=== PATIENT | male | born 1940 | race African-American/Black ===

== ENCOUNTER 2017-07-18 05:54 | Inpatient (IN) ==
--- NOTE | 2017-07-18 06:59 | EKG Report ---
Stationary ECG Study [facility] Test Date: 07/18/2017 6:56:54 AM Pat Name: CATRACHITO WILLOUGHBY Department: Room: 607 Gender: M [employer] Hel[employer]: MONICA : 1940 Requested by: Ozzy Whiet Order Number: [id number] Reading MD: PIERRE MTZ Intervals [place] Rate: 76 P: 61 AK: 190 QRS: 5 QRSD: 82 T: 38 QT: 346 QTc: 376 Interpretive Statements SINUS RHYTHM Electronically Signed On 07-18-17 10:51:32 CDT by PIERRE MTZ [email or web address]
[2017-07-18] MEDS ORDERED: LEVOFLOXACIN INJ 0 ML IV ONE (07:23)
[2017-07-18] MEDS ORDERED: LEVOFLOXACIN INJ 500 MG in PREMIX 1 EACH IV ONE (07:25)
--- NOTE | 2017-07-18 07:26 | XRay Report ---
2 view chest. Indication: Respiratory preoperative. The heart is normal in size. The pulmonary vasculature is normal. There is no consolidation, pneumothorax, or pleural effusion. At the right lung base, centrally, there is questionably a small nodular density, which may be related to nipple shadow or confluence of shadows. There has been previous vertebroplasty. Impression: Pulmonary nodule versus nipple shadow versus confluence of shadows at the right lung base. CT of the chest is recommended for further evaluation. PROCEDURE INTERPRETED AT [facility] DEPARTMENT OF RADIOLOGY Final Report Signed by: Dr. Marjorie Montano
[2017-07-18 07:40] LABS: Basophils % 0.3 % (0.0-0.8); Eosinophils # 0.1 10*3/uL (0.0-0.87); Eosinophils % 3.4 % (0.00-10.9); Hematocrit 25.8 VOL% (42.0-52.0); Hemoglobin 8.1 GM/DL (14.0-18.0); Immature Granulocytes % 3.7 %; Immature Granulocytes Absolute 0.13 #; Lymphocytes # 0.9 10*3/uL (1.4-4.0); Lymphocytes % 25.6 % (21.2-54.2); Mean Corpuscular HGB Conc 31.4 GM/DL (32-36); Mean Corpuscular Hemoglobin 27 PG (27-34); Mean Corpuscular Volume 84.9 FL (87-102); Mean Platelet Volume 9.6 FL (9.6-12.0); Monocytes # 0.5 10*3/uL (0.11-0.8); Monocytes % 14.5 % (1.7-12.7); Neutrophils # 1.8 10*3/uL (1.4-7.4); Neutrophils % 52.5 % (38.7-73.9); Platelet Count 252 T/CUMM (130-400); Red Blood Count 3.04 MC/CUMM (3.8-5.5); Red Cell Distribution Width 18.7 % (9.3-17.3); White Blood Count 3.5 T/CUMM (4-12)
[2017-07-18 07:42] LABS: Apearance,Urine CLEAR (Clear); Bilirubin,Urine Negative (Negative); Blood, Urine Negative (Negative); Glucose,Urine (UA) >=500 mg/dL (Negative); Ketones,Urine Negative (Negative); Nitrite,Urine Negative (Negative); Protein,Urine 30 MG/DL; RBC,Urine <1 /HPF (0-4); Squamous Epithelial Cell,Urine Occasional /HPF (0-10); Urine Color Straw (Yellow); Urine Specific Gravity 1.013 (1.001-1.035); Urine Urobilinogen < 2.0 EU/DL (0.2-1.0); WBC,Urine <1 /HPF (0-6)
[2017-07-18 08:02] LABS: PT Patient Result 10.3 SECS
[2017-07-18] MEDS: SODIUM CHLORIDE 0.45% 1,000 ML IV SCH ×2 (08:52→22:02)
[2017-07-18 09:05] LABS: Hepatitis A Ab IgM Quant 0.12 Index; Hepatitis A Ab IgM Result Negative (Negative); Hepatitis B Core IgM Quant 0.06 Index; Hepatitis B Core IgM Result Negative (Negative); Hepatitis B Surface Ag Result Negative (Negative); Hepatitis C Virus Ab Quant 0.02 Index; Hepatitis C Virus Ab Result Negative (Negative)
--- NOTE | 2017-07-18 09:13 | IR History and Physical Update ---
IR Pre-Procedure - History and Physical H&P was reviewed, the patient examined and there: are no changes in the patients condition since last H&P was completed. Reason for procedure:: CKD, never had biopsy before - Dictation Physical: refer to scanned H&P - Physical Exam Vital Signs: Last Vital Signs Temp 97.8 F 07/18/17 06:42 Pulse 75 07/18/17 06:42 Resp 20 07/18/17 06:42 BP 154/81 07/18/17 06:42 Pulse Ox 96 07/18/17 06:42 Mental Status: alert and oriented Heart: regular rate and rhythm Lung: clear to auscultation Abdomen: within normal limits - Sedation IR anesthesia plan for sedation: none ASA Class: III Airway Assessment: Class III: Soft palate, base of uvula visible - Risks Risks: Procedures explained. Risks discussed include, but not limited to, the following:[ ] All questions answered. The following alternatives were discussed:[ ] Risks and benefits discussed with: patient, spouse Consent obtained from: patient, spouse Assessment and Plan - Time spent with patient Time spent with patient: Less than 30 minutes (1) Chronic kidney disease (CKD) Problem details: need biopsy for staging Status: Acute Assessment and plan: this morning found to have hyperglycemia and anemia Dr. White will admit to address these issues prior to biopsy Current Visit: Yes
[2017-07-18] MEDS ORDERED: GLUCAGON 1 MG VIAL IM PRN (10:36)
[2017-07-18] MEDS ORDERED: DEXTROSE 50% 25 GM/50 ML SYRINGE IV PRN (10:36)
[2017-07-18] MEDS ORDERED: ACETAMINOPHEN 325 MG TABLET PO PRN (10:36)
[2017-07-18] MEDS ORDERED: SODIUM CHLORIDE 0.9% 250 ML IV PRN (12:37)
--- NOTE | 2017-07-18 12:41 | Nephrology Consult Note ---
History of Present Illness Chief complaint: Proteinuria History of present illness: Mr. Pineda is a 77 year old male with a history of hypertension diabetes and proteinuria who over the last several months has had decrease in weight and failure to thrive. Patient was started on Megace last month however patient's weight continues to decline. Moreover on outpatient basis. Has had evidence of proteinuria and is being admitted at this time for kidney biopsy. No fevers or chills. No shortness of breath or chest pain. There is been no change in medications. No history of NSAID medication. Home Medications Medication Instructions Recorded Confirmed Type Insulin Aspart [Novolog] 5 unit SQ BID 07/18/17 07/18/17 History Insulin Glargine,Hum.rec.anlog 20 unit SUBCUT BEDTIME 07/18/17 07/18/17 History [Lantus SoloStar] Megestrol Liquid [Megace Liquid] 10 ml PO BID 07/18/17 07/18/17 History RX: Enalapril Maleate 10 mg PO BID 07/18/17 07/18/17 History RX: Simvastatin 10 mg PO DAILY 07/18/17 07/18/17 History RX: hydroCHLOROthiazide 25 mg PO DAILY 07/18/17 07/18/17 History [Hydrochlorothiazide] amLODIPine [Norvasc] 2.5 mg PO DAILY 07/18/17 07/18/17 History Allergies Allergy/AdvReac Type Severity Reaction Status Date / Time No Known Allergies Allergy Verified 06/05/17 08:33 Medical,Surgical,& Family Hx - Medical History Cardio: History of: Hypertension Neurology: No history of: Seizures HEENT: No history of: Ear Problem, Eye Problem, Dental Problems Endocrine: History of: Diabetes Mellitus (IDDM), Diabetes Mellitus (NIDDM), Dyslipidemia Respiratory: No history of: Pneumonia (NO PNEUM VAC), Respiratory Problems (FLU VAC FALL 2015) Renal: History of: Renal Problems (07/18/17 SCHED FOR KIDNEY BX RAD DR. VIERA- CKD STAGE 2) Other: No history of: Anesthesia Reactions, Cancer - Surgical History Thoracic Surgeries: Patient denies;: Lobectomy HEENT Surgeries: Patient denies: Eye Surgery, Tonsilectomy & Adenoidectomy - Social History Smoking Status: Never smoker Frequency of Alcohol Use: None Type of Drug Use: None Exam - Vital Signs Vital signs: Period Temp Pulse Resp BP Sys/Mejia Pulse Ox Last 24 Hr 97.8 F 75 20 154/81 96 - General Appearance General appearance: well-developed, fatigue, frail EENT: ATNC Neck: supple Respiratory: clear Cardiology: regular rate, regular rhythm Gastrointestinal: normoactive bowel sounds, no tenderness Neurologic: alert and oriented x3, CN 3-12 intact Psychiatric: mood/affect appropriate, cooperative Results - Labs CBC & BMP: 07/18/17 07:21 07/18/17 07:16 Assessment and Plan (1) Diabetes Status: Chronic Current Visit: Yes Qualifiers: Diabetes mellitus type: type 2 Chronic kidney disease stage: stage 2 (mild ) (2) Proteinuria Status: Chronic Current Visit: Yes Qualifiers: Proteinuria type: persistent Qualified Code(s): R80.1 - Persistent proteinuria, unspecified (3) Failure to thrive Status: Acute Assessment and plan: With weight loss. Currently on Megace therapy. Current Visit: Yes Qualifiers: Failure to thrive age range: in adult Qualified Code(s): R62.7 - Adult failure to thrive (4) Weight loss Status: Acute Current Visit: Yes (5) Chronic kidney disease (CKD) Problem details: need biopsy for staging Status: Chronic Assessment and plan: Evidence of proteinuria in this patient with diabetes. Will get a kidney biopsy. Current Visit: Yes Qualifiers: Chronic kidney disease stage: stage 2 (mild) Qualified Code(s): N18.2 - Chronic kidney disease, stage 2 (mild) (6) Anemia Status: Acute Assessment and plan: Type and transfuse 2 units packed red blood cells. Current Visit: Yes
[2017-07-18 12:44] LABS: Alanine Aminotransferase 25 U/L (16-61); Alkaline Phosphatase 143 U/L (45-117); Aspartate Amino Transferase 17 U/L (0-37); Bilirubin,Total < 0.39 MG/DL (0.2-1.0); Blood Urea Nitrogen 29 MG/DL (7-18); Glucose 287 MG/DL (74-106); Osmolality,Calculated 292.5 MOS/KG (273-304); Potassium 4.7 MMOL/L (3.5-5.1); Sodium 139 MMOL/L (136-145); Total Protein 5.9 G/DL (6.4-8.3)
[2017-07-18 13:31] LABS: Basophils % 0.3 % (0.0-0.8); Eosinophils # 0.1 10*3/uL (0.0-0.87); Eosinophils % 2.9 % (0.00-10.9); Hematocrit 28.2 VOL% (42.0-52.0); Hemoglobin 8.5 GM/DL (14.0-18.0); Immature Granulocytes % 3.2 %; Immature Granulocytes Absolute 0.11 #; Lymphocytes # 0.9 10*3/uL (1.4-4.0); Lymphocytes % 27.6 % (21.2-54.2); Mean Corpuscular HGB Conc 30.1 GM/DL (32-36); Mean Corpuscular Hemoglobin 26 PG (27-34); Mean Corpuscular Volume 87.6 FL (87-102); Mean Platelet Volume 9.7 FL (9.6-12.0); Monocytes # 0.5 10*3/uL (0.11-0.8); Monocytes % 13.8 % (1.7-12.7); Neutrophils # 1.8 10*3/uL (1.4-7.4); Neutrophils % 52.2 % (38.7-73.9); Platelet Count 197 T/CUMM (130-400); Red Blood Count 3.22 MC/CUMM (3.8-5.5); Red Cell Distribution Width 18.9 % (9.3-17.3); White Blood Count 3.4 T/CUMM (4-12)
[2017-07-18] MEDS: ENALAPRIL 10 MG TABLET PO SCH (21:22)
[2017-07-18] MEDS: MEGESTROL 400 MG/10 ML UDCUP PO SCH (21:22)
[2017-07-18] MEDS: INSULIN LISPRO 100 UNIT/ML SUBCUT SCH (21:23)
[2017-07-19 07:26] LABS: Basophils % 0.5 % (0.0-0.8); Eosinophils # 0.1 10*3/uL (0.0-0.87); Eosinophils % 2.5 % (0.00-10.9); Hematocrit 34.8 VOL% (42.0-52.0); Immature Granulocytes % 3.5 %; Immature Granulocytes Absolute 0.14 #; Lymphocytes # 1.3 10*3/uL (1.4-4.0); Lymphocytes % 32.3 % (21.2-54.2); Mean Corpuscular HGB Conc 32.5 GM/DL (32-36); Mean Corpuscular Hemoglobin 27 PG (27-34); Mean Corpuscular Volume 83.5 FL (87-102); Mean Platelet Volume 9.8 FL (9.6-12.0); Monocytes # 0.5 10*3/uL (0.11-0.8); Monocytes % 12.2 % (1.7-12.7); Platelet Count 222 T/CUMM (130-400); Red Cell Distribution Width 17.2 % (9.3-17.3)
[2017-07-19 07:39] LABS: Hemoglobin 11.3 GM/DL (14.0-18.0); Red Blood Count 4.17 MC/CUMM (3.8-5.5)
[2017-07-19 07:59] LABS: Calcium 9.2 MG/DL (8.5-10.1); Osmolality,Calculated 288.7 MOS/KG (273-304); Phosphorous 3.2 MG/DL (2.5-4.9); Potassium 4.4 MMOL/L (3.5-5.1)
[2017-07-19] MEDS: INSULIN LISPRO 100 UNIT/ML SUBCUT SCH ×2 (08:20→20:49)
[2017-07-19] MEDS: amLODIPine 2.5 MG TABLET PO SCH (08:20)
--- NOTE | 2017-07-19 08:51 | Nephrology Progress Note ---
Nephrology - PN: Subj Interval history: This patient is resting comfortably no acute changes. Tolerated 2 units packed red blood cells on yesterday hematocrit is been stable. No fevers or chills. No shortness of breath. Family members at the bedside states that there was question about patient having such a strong halitosis. No history of nausea or vomiting and no history of EGD. Exam (PN)-Nephrology - Vital Signs Vital signs: Period Temp Pulse Resp BP Sys/Mejia Pulse Ox Last 24 Hr 97.7 F-99.1 F 66-89 16-20 127-189/68-92 97-99 - General Appearance General appearance: well-developed, fatigue EENT: ATNC Neck: supple Respiratory: clear Cardiology: regular rate, regular rhythm Gastrointestinal: normoactive bowel sounds, no tenderness Neurologic: CN 3-12 intact Musculoskeletal: no clubbing Psychiatric: mood/affect appropriate - Lab 07/19/17 07:10 07/19/17 07:10 Most recent lab results Calcium 9.2 MG/DL (8.5-10.1) 07/19/17 07:10 Phosphorus 3.2 MG/DL (2.5-4.9) 07/19/17 07:10 Assessment and Plan (1) Diabetes Status: Chronic Current Visit: Yes Qualifiers: Diabetes mellitus type: type 2 Chronic kidney disease stage: stage 2 (mild ) (2) Proteinuria Status: Chronic Current Visit: Yes Qualifiers: Proteinuria type: persistent Qualified Code(s): R80.1 - Persistent proteinuria, unspecified (3) Failure to thrive Status: Acute Assessment and plan: With weight loss. Currently on Megace therapy. Appetite seems to be better. Current Visit: Yes Qualifiers: Failure to thrive age range: in adult Qualified Code(s): R62.7 - Adult failure to thrive (4) Weight loss Status: Acute Current Visit: Yes (5) Chronic kidney disease (CKD) Problem details: need biopsy for staging Status: Chronic Assessment and plan: Evidence of proteinuria in this patient with diabetes. Will get a kidney biopsy. Plan for biopsy today. Current Visit: Yes Qualifiers: Chronic kidney disease stage: stage 2 (mild) Qualified Code(s): N18.2 - Chronic kidney disease, stage 2 (mild) (6) Anemia Status: Acute Assessment and plan: Type and transfuse 2 units packed red blood cells. Now status post 2 units packed red blood cells. Hematocrit is stable. CBC in a.m. Will ask for GI consult for EGD Current Visit: Yes (7) Halitosis Status: Acute Current Visit: Yes
[2017-07-19] MEDS ORDERED: LEVOFLOXACIN INJ 500 MG in PREMIX 1 EACH IV ONE (09:38)
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
[2017-07-19] MEDS: SODIUM CHLORIDE 0.45% 1,000 ML IV SCH (11:11)
--- NOTE | 2017-07-19 12:02 | IR History and Physical Update ---
IR Pre-Procedure - History and Physical H&P was reviewed, the patient examined and there: are no changes in the patients condition since last H&P was completed. Reason for procedure:: chronic renal failure - Dictation Physical: refer to H&P completed by admitting physician - Physical Exam Vital Signs: Last Vital Signs Temp 97.3 F L 07/19/17 11:59 Pulse 73 07/19/17 11:59 Resp 18 07/19/17 11:59 BP 150/86 07/19/17 11:59 Pulse Ox 100 07/19/17 11:59 Mental Status: alert and oriented Heart: regular rate and rhythm Lung: clear to auscultation Abdomen: within normal limits - Sedation IR anesthesia plan for sedation: none ASA Class: III Airway Assessment: Class III: Soft palate, base of uvula visible - Risks Risks: Procedures explained. Risks discussed include, but not limited to, the following:[ bleeding, infection, injury to adjacent structures] All questions answered. The following alternatives were discussed:[none ] Risks and benefits discussed with: patient Consent obtained from: patient Assessment and Plan - Time spent with patient Time spent with patient: Less than 30 minutes (1) Chronic kidney disease (CKD) Problem details: need biopsy for staging Status: Chronic Assessment and plan: this morning found to have hyperglycemia and anemia Dr. White will admit to address these issues prior to biopsy Current Visit: Yes Qualifiers: Chronic kidney disease stage: stage 2 (mild) Qualified Code(s): N18.2 - Chronic kidney disease, stage 2 (mild)
[2017-07-19] MEDS ORDERED: DIAZEPAM 5 MG TABLET PO ONE (13:14)
[2017-07-19] MEDS: ENALAPRIL 10 MG TABLET PO SCH ×2 (16:23→20:42)
[2017-07-19] MEDS: MEGESTROL 400 MG/10 ML UDCUP PO SCH ×2 (16:23→20:43)
--- NOTE | 2017-07-19 16:33 | Post Interventional Procedure ---
Pre-op diagnosis: chronic renal failure Post-op diagnosis: same Procedure: u/s renal biopsy Contrast: none Flouroscopy: none Radiologist: Clayton Molina Anesthesia: local Specimens: other (5 core samples sent for renal path analysis) Estimated blood loss: none Complications: none Condition: stable Description/Findings: lower pole of the left kidney was targeted for biopsy samples were obtained with no significant bleeding patient tolerated well Assessment and Plan - Time spent with patient Time spent with patient: Less than 30 minutes (1) Chronic kidney disease (CKD) Problem details: need biopsy for staging Status: Chronic Assessment and plan: this morning found to have hyperglycemia and anemia Dr. White will admit to address these issues prior to biopsy Current Visit: Yes Qualifiers: Chronic kidney disease stage: stage 2 (mild) Qualified Code(s): N18.2 - Chronic kidney disease, stage 2 (mild)
[2017-07-19] MEDS: hydroCHLOROthiazide 25 MG TABLET PO SCH (16:58)
[2017-07-19] MEDS: SIMVASTATIN 10 MG TABLET PO SCH (16:58)
--- NOTE | 2017-07-19 17:05 | Ultrasound Report ---
US biopsy renal LT Clinical Information: chronic renal failure Comparison: Prior renal ultrasound 03/08/2017 Total number of images for the procedure: 232 Findings: The lower pole the left kidney was targeted for biopsy. A total of 5 separate 20-gauge core samples were obtained and submitted for renal specific pathology. Following needle removal, scanning of the left flank and area of biopsy demonstrates no evidence of significant hemorrhage or other complication. Impression: Image guided random renal biopsy as detailed above. PROCEDURE INTERPRETED AT [facility] DEPARTMENT OF RADIOLOGY Final Report Signed by: Clayton Molina
[2017-07-19 20:37] LABS: % Iron Saturation 37.2 % (18-50); Ferritin 820.2 ng/ml (26-388)
[2017-07-20 05:53] LABS: Basophils % 0.7 % (0.0-0.8); Eosinophils # 0.1 10*3/uL (0.0-0.87); Eosinophils % 2.1 % (0.00-10.9); Hematocrit 36.5 VOL% (42.0-52.0); Hemoglobin 11.8 GM/DL (14.0-18.0); Immature Granulocytes % 2.1 %; Immature Granulocytes Absolute 0.09 #; Lymphocytes # 1.1 10*3/uL (1.4-4.0); Lymphocytes % 25.3 % (21.2-54.2); Mean Corpuscular HGB Conc 32.3 GM/DL (32-36); Mean Corpuscular Hemoglobin 27 PG (27-34); Mean Corpuscular Volume 83.7 FL (87-102); Monocytes # 0.5 10*3/uL (0.11-0.8); Neutrophils # 2.5 10*3/uL (1.4-7.4); Neutrophils % 57.8 % (38.7-73.9); Platelet Count 214 T/CUMM (130-400); Red Blood Count 4.36 MC/CUMM (3.8-5.5); Red Cell Distribution Width 17.5 % (9.3-17.3); White Blood Count 4.3 T/CUMM (4-12)
[2017-07-20] MEDS: INSULIN LISPRO 100 UNIT/ML SUBCUT SCH ×2 (08:32→21:17)
[2017-07-20] MEDS: amLODIPine 2.5 MG TABLET PO SCH (09:22)
[2017-07-20] MEDS: MEGESTROL 400 MG/10 ML UDCUP PO SCH ×2 (09:22→21:17)
[2017-07-20] MEDS: hydroCHLOROthiazide 25 MG TABLET PO SCH (09:22)
[2017-07-20] MEDS: SODIUM CHLORIDE 0.45% 1,000 ML IV SCH (09:22)
[2017-07-20] MEDS: SIMVASTATIN 10 MG TABLET PO SCH (09:23)
[2017-07-20] MEDS: ENALAPRIL 10 MG TABLET PO SCH ×2 (09:23→21:17)
[2017-07-20] MEDS ORDERED: LIDOCAINE 2% 5 ML VIAL ONE (13:01)
[2017-07-20] MEDS ORDERED: PROPOFOL 200 MG/20 ML VIAL IV ONE (13:01)
--- NOTE | 2017-07-20 13:08 | History and Physical Update ---
History and Physical Update - History and Physical H&P was reviewed, the patient examined and there: are no changes in the patients condition since last H&P was completed. - Physical Exam Mental Status: alert and oriented Heart: regular rate and rhythm Lung: clear to auscultation Abdomen: within normal limits Vitals: within normal limits
--- NOTE | 2017-07-20 13:11 | Operative Note ---
Date of procedure: 07/20/17 Pre-op diagnosis: Anemia, weight loss Procedure: Procedure: Esophagogastroduodenoscopy Brief clinical abstract: Patient is a 77-year-old male who has had recent 10 pound weight loss with decreased appetite. He was anemic on admission requiring transfusion. He denies gross GI bleeding, abdominal pain or difficulty swallowing. Indication for procedure: Anemia, weight loss Endoscopic findings:[After informed consent was obtained, the patient was placed in the left lateral decubitus position. The gastroscope was inserted in the upper esophagus under direct vision with no resistance encountered. Esophageal mucosa appeared normal with squamocolumnar junction sharply demarcated above a small hiatal hernia. The endoscope was advanced in the stomach which was carefully examined including retroflexed view of the cardia and fundus with no abnormality seen. The pyloric channel, duodenal bulb, second and third portion of the duodenum appeared normal. The endoscope was withdrawn and patient appeared to tolerate procedure well Impression: Small hiatal hernia-otherwise normal EGD Recommendations: Patient needs colonoscopy at some point with last exam 10 years ago. Could do tomorrow if he stays as inpatient overnight or schedule as outpatient. Anesthesia: MAC Surgeon / Physician: Boston Doherty Estimated blood loss: none Specimens: none sent Condition: stable Disposition: post procedure unit Results - Labs CBC & BMP: 07/20/17 05:07 07/19/17 07:10 Discharge Plan - Discharge Medications No Action amLODIPine [Norvasc] 2.5 mg PO DAILY Enalapril Maleate 10 mg PO BID Insulin Aspart [Novolog] 5 unit SQ BID Insulin Glargine,Hum.rec.anlog [Lantus SoloStar] 20 unit SUBCUT BEDTIME hydroCHLOROthiazide [Hydrochlorothiazide] 25 mg PO DAILY Simvastatin 10 mg PO DAILY Megestrol Liquid [Megace Liquid] 10 ml PO BID - Follow Up or Referral - Forms/Instructions
--- NOTE | 2017-07-20 13:23 | Anesthesia Post-Op ---
Anesthesia Post OP - Post Ansesthetic Evaluation Patient seen in post op: Yes Resp: within normal limits CV: within normal limits Mental: within normal limits Temp: within normal limits Pree-Cn-Zkadmkosu: within normal limits Nausea and Vomiting: within normal limits Pain: within normal limits
--- NOTE | 2017-07-20 17:41 | Nephrology Progress Note ---
Nephrology - PN: Subj Interval history: This patient is resting comfortably no acute changes. Tolerated 2 units packed red blood cells on yesterday hematocrit is been stable. No fevers or chills. No shortness of breath. Family members at the bedside states that there was question about patient having such a strong halitosis. No history of nausea or vomiting and no history of EGD. 07/20/2017. The patient is resting comfortably. Had an EGD done today that showed hernia. Hemodynamics have been stable. Hemoglobin is stable. Patient still has a pending kidney biopsy. Exam (PN)-Nephrology - Vital Signs Vital signs: Period Temp Pulse Resp BP Sys/Mejia Pulse Ox Last 24 Hr 97.6 F-98.7 F 74-97 16-24 109-144/61-83 96-100 - General Appearance General appearance: fatigue, frail EENT: ATNC Neck: supple Respiratory: clear Cardiology: regular rate, regular rhythm Gastrointestinal: normoactive bowel sounds, no tenderness Integumentary: no rash Neurologic: alert and oriented x3, CN 3-12 intact Musculoskeletal: no clubbing Psychiatric: mood/affect appropriate - Lab 07/20/17 05:07 07/19/17 07:10 Most recent lab results Calcium 9.2 MG/DL (8.5-10.1) 07/19/17 07:10 Phosphorus 3.2 MG/DL (2.5-4.9) 07/19/17 07:10 Assessment and Plan (1) Diabetes Status: Chronic Current Visit: Yes Qualifiers: Diabetes mellitus type: type 2 Chronic kidney disease stage: stage 2 (mild ) (2) Proteinuria Status: Chronic Current Visit: Yes Qualifiers: Proteinuria type: persistent Qualified Code(s): R80.1 - Persistent proteinuria, unspecified (3) Failure to thrive Status: Acute Assessment and plan: With weight loss. Currently on Megace therapy. Appetite seems to be better. Current Visit: Yes Qualifiers: Failure to thrive age range: in adult Qualified Code(s): R62.7 - Adult failure to thrive (4) Weight loss Status: Acute Current Visit: Yes (5) Chronic kidney disease (CKD) Problem details: need biopsy for staging Status: Chronic Assessment and plan: Evidence of proteinuria in this patient with diabetes. He is now status post a kidney biopsy. Those results are pending. Serologic workup showed evidence of M spike on his SPEP. Current Visit: Yes Qualifiers: Chronic kidney disease stage: stage 2 (mild) Qualified Code(s): N18.2 - Chronic kidney disease, stage 2 (mild) (6) Anemia Status: Acute Assessment and plan: Hematocrit is stable. Now status post an EGD which showed evidence of a hernia. No other acute changes. Current Visit: Yes (7) Halitosis Status: Acute Assessment and plan: Appreciate input from GI. Current Visit: Yes
[2017-07-20] MEDS ORDERED: POLYETHYLENE GLYCOL POWDER 255 GM BOTTLE PO ONE (18:00)
[2017-07-21] MEDS ORDERED: MAGNESIUM CITRATE 300 ML BOTTLE PO ONE (06:00)
[2017-07-21 06:08] LABS: Basophils % 0.4 % (0.0-0.8); Eosinophils # 0.1 10*3/uL (0.0-0.87); Eosinophils % 1.8 % (0.00-10.9); Hematocrit 39.8 VOL% (42.0-52.0); Hemoglobin 12.8 GM/DL (14.0-18.0); Immature Granulocytes Absolute 0.05 #; Lymphocytes # 1.4 10*3/uL (1.4-4.0); Lymphocytes % 27.7 % (21.2-54.2); Mean Corpuscular HGB Conc 32.2 GM/DL (32-36); Mean Corpuscular Hemoglobin 27 PG (27-34); Mean Corpuscular Volume 82.4 FL (87-102); Mean Platelet Volume 9.1 FL (9.6-12.0); Monocytes # 0.5 10*3/uL (0.11-0.8); Neutrophils % 60.1 % (38.7-73.9); Platelet Count 210 T/CUMM (130-400); Red Blood Count 4.83 MC/CUMM (3.8-5.5); Red Cell Distribution Width 17.3 % (9.3-17.3)
[2017-07-21 06:36] LABS: Calcium 9.1 MG/DL (8.5-10.1); Osmolality,Calculated 284.8 MOS/KG (273-304); Potassium 4.1 MMOL/L (3.5-5.1)
[2017-07-21] MEDS: INSULIN LISPRO 100 UNIT/ML SUBCUT SCH ×2 (09:10→20:01)
[2017-07-21] MEDS: amLODIPine 2.5 MG TABLET PO SCH ×2 (09:49→15:14)
[2017-07-21] MEDS: SIMVASTATIN 10 MG TABLET PO SCH (09:49)
[2017-07-21] MEDS: hydroCHLOROthiazide 25 MG TABLET PO SCH ×2 (09:49→15:14)
[2017-07-21] MEDS: ENALAPRIL 10 MG TABLET PO SCH ×3 (09:49→20:01)
[2017-07-21] MEDS: MEGESTROL 400 MG/10 ML UDCUP PO SCH ×2 (09:49→20:01)
[2017-07-21] MEDS: SODIUM CHLORIDE 0.45% 1,000 ML IV SCH (09:49)
--- NOTE | 2017-07-21 13:38 | Operative Note ---
Date of procedure: 07/21/17 Pre-op diagnosis: Screening, anemia Procedure: Procedure note: Colonoscopy Physician: Dr. Raphael Doherty Brief clinical abstract: 77-year-old male has had recent anemia with no localizing GI symptoms. He presents now for colon cancer screening. Endoscopic findings: After informed consent was obtained, the patient was placed in the left lateral decubitus position. Digital rectal exam was performed with no palpable abnormalities felt. Pediatric videocolonoscope was inserted into the rectum and advanced to the cecum without difficulty. Retroflex view within the cecum was performed back to the level of the hepatic flexure. The endoscope was advanced back to the cecum and on withdrawal colonic mucosa was carefully examined. Bowel prep was of excellent quality. Withdrawal time was over 6 minutes duration. Vascular pattern throughout the colon appeared normal. On withdrawal no polyps were seen. No diverticuli were noted. The endoscope was withdrawn in the rectum with retroflex view showing small internal hemorrhoids. The endoscope was removed and patient appeared to tolerate the procedure well. Impression: Internal hemorrhoids-otherwise normal colonoscopy Plan: Advance diet. Could discharge from GI standpoint. Anesthesia: MAC Surgeon / Physician: [place] Doherty Estimated blood loss: none Specimens: none sent Condition: stable Disposition: post procedure unit Results - Labs CBC & BMP: 07/21/17 05:50 07/21/17 05:50 Discharge Plan - Discharge Medications No Action amLODIPine [Norvasc] 2.5 mg PO DAILY Enalapril Maleate 10 mg PO BID Insulin Aspart [Novolog] 5 unit SQ BID Insulin Glargine,Hum.rec.anlog [Lantus SoloStar] 20 unit SUBCUT BEDTIME hydroCHLOROthiazide [Hydrochlorothiazide] 25 mg PO DAILY Simvastatin 10 mg PO DAILY Megestrol Liquid [Megace Liquid] 10 ml PO BID - Follow Up or Referral - Forms/Instructions
--- NOTE | 2017-07-21 13:44 | Anesthesia Post-Op ---
Anesthesia Post OP - Post Ansesthetic Evaluation Patient seen in post op: Yes Resp: within normal limits CV: within normal limits Mental: within normal limits Temp: within normal limits [id number]-[id number]: within normal limits Nausea and Vomiting: within normal limits Pain: within normal limits Other:: Bp 80/50 in recovery room given jake 100mcg,, bp 110/72
--- NOTE | 2017-07-21 19:26 | Nephrology Progress Note ---
Nephrology - PN: Subj Interval history: This patient is resting comfortably no acute changes. Tolerated 2 units packed red blood cells on yesterday hematocrit is been stable. No fevers or chills. No shortness of breath. Family members at the bedside states that there was question about patient having such a strong halitosis. No history of nausea or vomiting and no history of EGD. 07/20/2017. The patient is resting comfortably. Had an EGD done today that showed hernia. Hemodynamics have been stable. Hemoglobin is stable. Patient still has a pending kidney biopsy. 07/21/2017. The patient is resting comfortably. Had a C scope done today which showed evidence of hemorrhoids but no other acute pathology. Patient's renal function is stable. Anemia is stable. Appetite has improved. At this time waiting for confirmatory test for the can kidney biopsy. Exam (PN)-Nephrology - Vital Signs Vital signs: Period Temp Pulse Resp BP Sys/Mejia Pulse Ox Last 24 Hr 96.5 F-97.9 F 74-90 16-20 80-159/50-94 97-100 - General Appearance General appearance: well-developed, fatigue, frail EENT: ATNC Neck: supple Respiratory: clear Cardiology: regular rate, regular rhythm Gastrointestinal: normoactive bowel sounds, no tenderness, no guarding Neurologic: alert and oriented x3 Musculoskeletal: no clubbing Psychiatric: mood/affect appropriate - Lab 07/21/17 05:50 07/21/17 05:50 Most recent lab results Calcium 9.1 MG/DL (8.5-10.1) 07/21/17 05:50 Phosphorus 3.2 MG/DL (2.5-4.9) 07/19/17 07:10 Assessment and Plan (1) Diabetes Status: Chronic Current Visit: Yes Qualifiers: Diabetes mellitus type: type 2 Chronic kidney disease stage: stage 2 (mild ) (2) Proteinuria Status: Chronic Current Visit: Yes Qualifiers: Proteinuria type: persistent Qualified Code(s): R80.1 - Persistent proteinuria, unspecified (3) Failure to thrive Status: Acute Assessment and plan: With weight loss. Currently on Megace therapy. Appetite seems to be better. Current Visit: Yes Qualifiers: Failure to thrive age range: in adult Qualified Code(s): R62.7 - Adult failure to thrive (4) Weight loss Status: Acute Current Visit: Yes (5) Chronic kidney disease (CKD) Problem details: need biopsy for staging Status: Chronic Assessment and plan: Evidence of proteinuria in this patient with diabetes. He is now status post a kidney biopsy. Those results are pending. Serologic workup showed evidence of M spike on his SPEP. 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 Current Visit: Yes Qualifiers: Chronic kidney disease stage: stage 2 (mild) Qualified Code(s): N18.2 - Chronic kidney disease, stage 2 (mild) (6) Anemia Status: Acute Assessment and plan: Hematocrit is stable. Now status post an EGD which showed evidence of a hernia. Colonoscopy unremarkable. No other acute changes. Hematocrit has been stable. Current Visit: Yes (7) Halitosis Status: Acute Assessment and plan: Appreciate input from GI. Current Visit: Yes
[2017-07-22] MEDS: ENALAPRIL 10 MG TABLET PO SCH (08:01)
[2017-07-22] MEDS: SIMVASTATIN 10 MG TABLET PO SCH (08:01)
[2017-07-22] MEDS: INSULIN LISPRO 100 UNIT/ML SUBCUT SCH (08:01)
[2017-07-22] MEDS: hydroCHLOROthiazide 25 MG TABLET PO SCH (08:01)
[2017-07-22] MEDS: amLODIPine 2.5 MG TABLET PO SCH (08:01)
[2017-07-22] MEDS: SODIUM CHLORIDE 0.45% 1,000 ML IV SCH (08:01)
[2017-07-22] MEDS: MEGESTROL 400 MG/10 ML UDCUP PO SCH (08:02)
--- NOTE | 2017-07-22 08:38 | Gastrointestinal Progress Note ---
Assessment and Plan (1) Weight loss Status: Acute Assessment and plan: 07/22-C scope findings noted as below. Appetite is improving at this time. Plan an addendum to followed by Dr. Doherty. 07/19-10 pd weight loss over last 3 months with loss of appetite with minimal improvement with Megace. No prior EGD in the past. Plan and addendum to follow by Dr Doherty. Current Visit: Yes (2) Anemia Status: Acute Assessment and plan: 07/19-Two year history of anemia w/o transfusion or workup per family with findings of HH 07/22, now post transfusion w/o reports of overt bleeding. No GI symptoms reported other than 10 pd weight loss over last 6 months. Last endoscopy noted as below. Check stools for occult blood. Plan and addendum to follow by Dr Doherty. Current Visit: Yes Gastroenterology - PN: Subj Interval history: CC: Anemia Patient is seen awake and alert lying in bed with family at side. States he rested well overnight. Colonoscopy on yesterday noted to just have findings of internal hemorrhoids. Patient states he is eating a little better and feeling a little better at this time. Abdomen is soft, nontender. No repeat labs noted for today. Patient is for possible discharge home later today. ROS: Denies shortness of breath or chest pain Exam (Progress Note) - Constitutional Vitals: Period Temp Pulse Resp BP Sys/Mejia Pulse Ox Last 24 Hr 96.5 F-97.9 F 74-98 16-20 80-152/50-94 97-100 - Other Additional findings: General appearance: normal weight, no acute distress - Head Head exam: Present: normal inspection, normocephalic - Eye Eye exam: Present: other (lids and conjunctiva unremarkable). Absent: scleral icterus - ENT ENT exam: Present: normal exam, normal oropharynx - Neck Neck exam: Present: normal inspection - Respiratory Respiratory exam: Present: clear to auscultation bilaterally. Absent: rales, rhonchi, wheezes - Cardiovascular Cardiovascular exam: Present: regular rate and rhythm. Absent: diastolic murmur , JVD, systolic murmur - GI/Abdominal GI/Abdominal exam: Present: normal bowel sounds, soft. Absent: ascites, distended, mass, organomegaly, tenderness - Extremities Exam Extremities exam: Present: normal inspection, full ROM - Back Exam Back exam: Present: normal inspection - Neurological Exam Neurological exam: Present: alert, oriented X3 - Psychiatric Psychiatric exam: Present: normal affect, normal mood - Skin Skin exam: Present: normal color, warm, dry Results - Labs CBC & BMP: 07/21/17 05:50 07/21/17 05:50 Lab Results: I have reviewed the past 24 hour labs
[2017-07-22 08:58] VITALS: BP 121/74
--- NOTE | 2017-07-22 09:41 | Discharge Summary ---
Hospital Course - Hospital Course Hospital Course: This hospitalization included patient admitted for fatigue weakness anemia proteinuria. He underwent a kidney biopsy after he had 2 units packed red blood cells on admission. 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 He also had a EGD and colonoscopy done due to the halitosis in the anemia. The EGD showed a hiatal hernia no active bleeding and the colonoscopy was unremarkable. The patient remained hemodynamically stable. Serum creatinine remained stable. Appetite continue to show signs of improvement. At this time patient is reached maximal hospitalization. He will be discharged home. He will also follow with nephrology in the next 2 weeks and further referral with hematology regarding the findings of the kidney biopsy. 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 Discharge Plan - Discharge Data Disposition: Disch To Home/Self Care Condition at Discharge: Stable Discharge Diet: diabetic diet Activity: resume usual activities as tolerated Hygiene: no restrictions Contact your physician if you experience:: fever over 101 - Discharge Medications Continue amLODIPine [Norvasc] 2.5 mg PO DAILY Enalapril Maleate 10 mg PO BID Insulin Aspart [NovoLOG] 5 unit SQ BID Insulin Glargine,Hum.rec.anlog [Lantus SoloStar] 20 unit SUBCUT BEDTIME hydroCHLOROthiazide [Hydrochlorothiazide] 25 mg PO DAILY Simvastatin 10 mg PO DAILY Megestrol Liquid [Megace Liquid] 10 ml PO BID - Follow Up or Referral - Forms/Instructions Additional Discharge Instructions: Follow with Dr. White in 2 weeks with a CBC BMP. Follow-up with hematology Dr. 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 Exam - Constitutional Vitals: Period Temp Pulse Resp BP Sys/Mejia Pulse Ox Last 24 Hr 96.5 F-97.9 F 74-98 16-20 80-152/50-94 97-100 General appearance: under weight - Head Head exam: Present: normal inspection - Eye Eye exam: Present: EOMI - ENT ENT exam: Present: normal exam - Respiratory Respiratory exam: Present: clear to auscultation bilaterally - Cardiovascular Cardiovascular exam: Present: regular rate and rhythm - GI/Abdominal GI/Abdominal exam: Present: normal bowel sounds - Neurological Exam Neurological exam: Present: alert, oriented X3, CN II-XII intact - Psychiatric Psychiatric exam: Present: normal affect - Skin Skin exam: Present: normal color, dry Discharge Results Procedures and tests throughout hospitalization: Pending Orders 07/19/17 10:25 Occult Blood, Stool Routine Labs on day of discharge: Labs from last 24 hours 07/22/17 07/21/17 07/21/17 07:05 18:46 15:09 POC Glucose 379 H 427 H 181 H 07/20/17 16:06 POC Glucose 354 H DS: Provider Date of admission: 07/18/17 12:34 Primary care physician: Edilson Worthington MD Attending physician on admission: Ozzy White Jr., MD Consults: 07/18/17 11:39 Consult to Dietitian [CONS] Routine Reason for Dietitian: Dietary Consult 07/19/17 08:52 Consult to Physician [CONS] Routine Comment: Anemia, EGD, halitosis Consulting Provider: [place] Doherty When should Consulting Provider be notified: Now Person Notified: KANDICE JHON Date Notified: 07/19/17 Time Notified: 09:16 Discharging clinician: Ozzy White Jr., MD
== END 2017-07-22 11:25 | disposition home or self-care (01) | DRG 842 ==
LOC: N.RAD 05:54 → N.SDSINP 05:57 → N.5E 10:31
PROVIDERS: ADMIT Internal Medicine Nephrology; ATTEND Radiology Diagnostic Radiology

== ENCOUNTER 2018-11-23 09:21 | Inpatient (IN) ==
[2018-11-23] MEDS ORDERED: SODIUM CHLORIDE 0.9% 1,000 ML IV STA ×3 (09:40→12:18)
[2018-11-23] MEDS ORDERED: ACETAMINOPHEN 500 MG TABLET PO STA (09:43)
[2018-11-23 10:26] LABS: Basophils % 0.2 % (0.0-0.8); Eosinophils # 0.1 10*3/uL (0.0-0.87); Eosinophils % 1.4 % (0.00-10.9); Hematocrit 28.6 VOL% (42.0-52.0); Hemoglobin 8.8 GM/DL (14.0-18.0); Immature Granulocytes % 1.1 %; Immature Granulocytes Absolute 0.07 #; Lymphocytes # 0.5 10*3/uL (1.4-4.0); Lymphocytes % 7.2 % (21.2-54.2); Mean Corpuscular HGB Conc 30.8 GM/DL (32-36); Mean Corpuscular Hemoglobin 28 PG (27-34); Mean Corpuscular Volume 89.9 FL (87-102); Mean Platelet Volume 10.3 FL (9.6-12.0); Monocytes # 0.7 10*3/uL (0.11-0.8); Monocytes % 10.8 % (1.7-12.7); Neutrophils # 4.9 10*3/uL (1.4-7.4); Neutrophils % 79.3 % (38.7-73.9); Platelet Count 169 T/CUMM (130-400); Red Blood Count 3.18 MC/CUMM (3.8-5.5); Red Cell Distribution Width 16.2 % (9.3-17.3); White Blood Count 6.2 T/CUMM (4-12)
[2018-11-23 10:39] LABS: PT Patient Result 10.5 SECS; Partial Thromboplastin Time 24.4 SECS (0-40)
[2018-11-23 10:48] LABS: Lactic Acid 4.2 MMOL/L (0.4-2.0)
[2018-11-23 10:52] LABS: Alanine Aminotransferase 29 U/L (16-61); Albumin 3.5 G/DL (3.4-5.0); Alkaline Phosphatase 76 U/L (45-117); Aspartate Amino Transferase 23 U/L (0-37); Bilirubin,Total < 0.39 MG/DL (0.2-1.0); Blood Urea Nitrogen 24 MG/DL (7-18); Calcium 8.4 MG/DL (8.5-10.1); Glucose 269 MG/DL (74-106); Osmolality,Calculated 287.7 MOS/KG (273-304); Potassium 4.3 MMOL/L (3.5-5.1); Sodium 138 MMOL/L (136-145); Total Protein 6.8 G/DL (6.4-8.3)
[2018-11-23] MEDS ORDERED: PIPERACILLIN/TAZOBACTAM 3,375 MG in SODIUM CHLORIDE 0.9% 100 ML IV STA (11:39)
[2018-11-23] MEDS ORDERED: DEXTROSE 50% 25 GM/50 ML VIAL IV PRN (14:52)
[2018-11-23] MEDS ORDERED: GLUCAGON 1 MG VIAL IM PRN (14:52)
[2018-11-23] MEDS ORDERED: diphenhydrAMINE CAP 25 MG CAPSULE PO PRN (18:17)
[2018-11-23] MEDS ORDERED: LOPERAMIDE 2 MG CAPSULE PO PRN ×2 (18:17)
[2018-11-23] MEDS ORDERED: MYLANTA/LIDO VISC 2:1 300 ML BOTTLE SWISH/SPIT PRN (18:17)
[2018-11-23] MEDS ORDERED: guaiFENesin 200 MG/10 ML UDCUP PO PRN (18:17)
[2018-11-23] MEDS ORDERED: BENZTROPINE 2 MG/2 ML AMP IV PRN (18:17)
[2018-11-23] MEDS ORDERED: LACTULOSE 20 GM/30 ML UDCUP PO PRN (18:17)
[2018-11-23] MEDS ORDERED: traMADol 50 MG TABLET PO PRN (18:17)
[2018-11-23] MEDS ORDERED: ALPRAZolam 0.25 MG TABLET PO PRN (18:17)
[2018-11-23] MEDS ORDERED: MAGNESIUM HYDROXIDE SUSP 30 ML UDCUP PO PRN (18:17)
[2018-11-23] MEDS ORDERED: MYLANTA/LIDO VISC 2:1 300 ML BOTTLE SWISH/SWAL PRN (18:17)
[2018-11-23] MEDS ORDERED: TEMAZEPAM 7.5 MG CAPSULE PO PRN (18:17)
[2018-11-23] MEDS ORDERED: PROMETHAZINE INJ 25 MG in SODIUM CHLORIDE 0.9% 50 ML IV PRN (18:17)
[2018-11-23] MEDS ORDERED: chlorproMAZINE 25 MG TABLET PO PRN (18:17)
[2018-11-23] MEDS ORDERED: chlorproMAZINE INJ 25 MG in SODIUM CHLORIDE 0.9% 100 ML IV PRN (18:17)
[2018-11-23] MEDS ORDERED: chlorproMAZINE INJ 50 MG in SODIUM CHLORIDE 0.9% 100 ML IV PRN (18:17)
[2018-11-23] MEDS: ACETAMINOPHEN 325 MG TABLET PO PRN ×2 (18:53→23:14)
[2018-11-23] MEDS: PIPERACILLIN/TAZOBACTAM 3,375 MG in SODIUM CHLORIDE 0.9% 100 ML IV SCH (18:53)
[2018-11-23] MEDS: SODIUM CHLORIDE 0.9% 1,000 ML IV SCH (18:53)
[2018-11-23] MEDS: INSULIN LISPRO 100 UNIT/ML SUBCUT SCH ×2 (22:54→23:15)
[2018-11-23] MEDS: INSULIN GLARGINE 100 UNIT/ML SUBCUT SCH (22:54)
[2018-11-23] MEDS: SIMVASTATIN 20 MG TABLET PO SCH (23:14)
[2018-11-23] MEDS: MEGESTROL 400 MG/10 ML UDCUP PO SCH (23:14)
[2018-11-24] MEDS: ONDANSETRON 4 MG/2 ML VIAL IV PRN ×2 (00:41→06:39)
[2018-11-24] MEDS: PIPERACILLIN/TAZOBACTAM 3,375 MG in SODIUM CHLORIDE 0.9% 100 ML IV SCH ×3 (03:59→21:15)
[2018-11-24 05:02] LABS: Basophils % 0.1 % (0.0-0.8); Eosinophils % 0.3 % (0.00-10.9); Hematocrit 25.8 VOL% (42.0-52.0); Hemoglobin 7.9 GM/DL (14.0-18.0); Immature Granulocytes % 0.9 %; Immature Granulocytes Absolute 0.07 #; Lymphocytes # 0.9 10*3/uL (1.4-4.0); Lymphocytes % 11.6 % (21.2-54.2); Mean Corpuscular HGB Conc 30.6 GM/DL (32-36); Mean Corpuscular Hemoglobin 28 PG (27-34); Mean Corpuscular Volume 90.2 FL (87-102); Mean Platelet Volume 10.1 FL (9.6-12.0); Monocytes # 0.8 10*3/uL (0.11-0.8); Monocytes % 10.1 % (1.7-12.7); Neutrophils # 5.7 10*3/uL (1.4-7.4); Platelet Count 140 T/CUMM (130-400); Red Blood Count 2.86 MC/CUMM (3.8-5.5); Red Cell Distribution Width 16.5 % (9.3-17.3); White Blood Count 7.4 T/CUMM (4-12)
[2018-11-24 05:48] LABS: Lymphocytes 10 % (20-55); Segmented Neutrophils 83 % (50-85); Total Cells Counted 100
[2018-11-24 05:49] LABS: Platelet Estimate Decreased; Polychromasia Few
[2018-11-24] MEDS: ACETAMINOPHEN 325 MG TABLET PO PRN ×2 (06:34→13:53)
[2018-11-24 07:09] LABS: Apearance,Urine CLEAR (Clear); Bilirubin,Urine Negative (Negative); Blood, Urine Large mg/dL (Negative); Glucose,Urine (UA) 50 mg/dL (Negative); Ketones,Urine Negative (Negative); Mucus,Urine Occasional /LPF (Occasional); Nitrite,Urine Negative (Negative); Protein,Urine 30 MG/DL; RBC,Urine 2 /HPF (0-4); Squamous Epithelial Cell,Urine Occasional /HPF (0-10); Urine Color Yellow (Yellow); Urine Specific Gravity 1.016 (1.001-1.035); WBC,Urine <1 /HPF (0-6)
[2018-11-24 07:51] LABS: Albumin 3.2 G/DL (3.4-5.0); Bilirubin,Total 0.5 MG/DL (0.2-1.0); Calcium 7.9 MG/DL (8.5-10.1); Potassium 3.7 MMOL/L (3.5-5.1); Total Protein 6.5 G/DL (6.4-8.3)
[2018-11-24] MEDS ORDERED: SODIUM CHLORIDE 0.9% 1,000 ML IV PRN ×2 (07:56→09:31)
[2018-11-24] MEDS ORDERED: BISACODYL 10 MG SUPP RECTAL PRN (08:44)
[2018-11-24 08:57] LABS: Immunoglobulin A 418 MG/DL (70-400); Immunoglobulin G 275 MG/DL (700-1600); Immunoglobulin M < 21 MG/DL (40-230); Total Protein 6.7 G/DL (6.4-8.3)
[2018-11-24] MEDS: amLODIPine 5 MG TABLET PO SCH (09:40)
[2018-11-24] MEDS: DEXAMETHASONE 4 MG TABLET PO SCH (09:40)
[2018-11-24] MEDS: MEGESTROL 400 MG/10 ML UDCUP PO SCH ×2 (09:40→20:26)
[2018-11-24 09:43] LABS: Immunoglobulin A (Chem) 418 MG/DL (70-400); Immunoglobulin G (Chem) 275 MG/DL (700-1600); Immunoglobulin M (Chem) < 21 MG/DL (40-230); Total Protein (Chem) 6.7 G/DL (6.4-8.3)
[2018-11-24] MEDS: INSULIN LISPRO 100 UNIT/ML SUBCUT SCH ×6 (13:46→20:37)
[2018-11-24] MEDS: INSULIN GLARGINE 100 UNIT/ML SUBCUT SCH ×2 (13:46→20:34)
[2018-11-24] MEDS: FLUCONAZOLE INJ 100 MG in IV BAG 1 EACH IV SCH (13:54)
[2018-11-24] MEDS: VANCOMYCIN INJ 1,000 MG in SODIUM CHLORIDE 0.9% 250 ML IV SCH (18:22)
[2018-11-24] MEDS: SIMVASTATIN 20 MG TABLET PO SCH (20:26)
[2018-11-25 05:20] LABS: Hematocrit 31.4 VOL% (42.0-52.0); Immature Granulocytes % 0.5 %; Immature Granulocytes Absolute 0.02 #; Lymphocytes # 0.9 10*3/uL (1.4-4.0); Lymphocytes % 19.7 % (21.2-54.2); Mean Corpuscular HGB Conc 31.5 GM/DL (32-36); Mean Corpuscular Hemoglobin 28 PG (27-34); Mean Corpuscular Volume 87.7 FL (87-102); Mean Platelet Volume 9.9 FL (9.6-12.0); Monocytes # 0.5 10*3/uL (0.11-0.8); Monocytes % 11.6 % (1.7-12.7); Neutrophils % 68.2 % (38.7-73.9); Platelet Count 121 T/CUMM (130-400)
[2018-11-25 05:34] LABS: Red Blood Count 3.58 MC/CUMM (3.8-5.5); White Blood Count 4.3 T/CUMM (4-12)
[2018-11-25 05:35] LABS: Hemoglobin 9.9 GM/DL (14.0-18.0)
[2018-11-25 05:45] LABS: Albumin 3.1 G/DL (3.4-5.0); Bilirubin,Total 1.6 MG/DL (0.2-1.0); Calcium 7.9 MG/DL (8.5-10.1); Osmolality,Calculated 284.7 MOS/KG (273-304); Potassium 3.9 MMOL/L (3.5-5.1); Total Protein 6.7 G/DL (6.4-8.3)
[2018-11-25 06:03] LABS: Band Neutrophils 4 % (0-10); Eosinophils 1 % (0-10); Lymphocytes 14 % (20-55); Metamyelocytes 3 %; Nucleated Red Blood Cells 1 (0-5); Segmented Neutrophils 63 % (50-85); Total Cells Counted 100
[2018-11-25 06:04] LABS: Platelet Estimate Adequate; Polychromasia Few
[2018-11-25] MEDS: SODIUM CHLORIDE 0.9% 1,000 ML IV SCH (07:06)
[2018-11-25] MEDS: INSULIN LISPRO 100 UNIT/ML SUBCUT SCH ×6 (09:59→21:07)
[2018-11-25] MEDS: amLODIPine 5 MG TABLET PO SCH (09:59)
[2018-11-25] MEDS: DEXAMETHASONE 4 MG TABLET PO SCH (09:59)
[2018-11-25] MEDS: MEGESTROL 400 MG/10 ML UDCUP PO SCH (09:59)
[2018-11-25] MEDS: INSULIN GLARGINE 100 UNIT/ML SUBCUT SCH ×2 (10:00→20:58)
[2018-11-25] MEDS: PIPERACILLIN/TAZOBACTAM 3,375 MG in SODIUM CHLORIDE 0.9% 100 ML IV SCH ×2 (10:10→20:59)
[2018-11-25] MEDS: FLUCONAZOLE INJ 100 MG in IV BAG 1 EACH IV SCH (14:31)
[2018-11-25] MEDS: VANCOMYCIN INJ 1,000 MG in SODIUM CHLORIDE 0.9% 250 ML IV SCH (17:21)
[2018-11-25] MEDS: SIMVASTATIN 20 MG TABLET PO SCH (20:59)
[2018-11-26] MEDS: PIPERACILLIN/TAZOBACTAM 3,375 MG in SODIUM CHLORIDE 0.9% 100 ML IV SCH ×3 (04:34→21:17)
[2018-11-26] MEDS: MEGESTROL 400 MG/10 ML UDCUP PO SCH ×3 (04:34→21:10)
[2018-11-26] MEDS: SODIUM CHLORIDE 0.9% 1,000 ML IV SCH ×2 (04:37→18:09)
[2018-11-26 05:20] LABS: Hematocrit 30.4 VOL% (42.0-52.0); Hemoglobin 9.8 GM/DL (14.0-18.0); Immature Granulocytes % 1.6 %; Immature Granulocytes Absolute 0.08 #; Lymphocytes # 0.7 10*3/uL (1.4-4.0); Lymphocytes % 13.7 % (21.2-54.2); Mean Corpuscular HGB Conc 32.2 GM/DL (32-36); Mean Corpuscular Hemoglobin 28 PG (27-34); Mean Corpuscular Volume 86.1 FL (87-102); Mean Platelet Volume 9.8 FL (9.6-12.0); Monocytes # 0.4 10*3/uL (0.11-0.8); Monocytes % 8.6 % (1.7-12.7); Neutrophils # 3.9 10*3/uL (1.4-7.4); Neutrophils % 76.1 % (38.7-73.9); Platelet Count 114 T/CUMM (130-400); Red Blood Count 3.53 MC/CUMM (3.8-5.5); Red Cell Distribution Width 16.1 % (9.3-17.3); White Blood Count 5.1 T/CUMM (4-12)
[2018-11-26 05:44] LABS: Albumin 2.9 G/DL (3.4-5.0); Bilirubin,Total 0.9 MG/DL (0.2-1.0); Osmolality,Calculated 291.1 MOS/KG (273-304); Total Protein 6.7 G/DL (6.4-8.3)
[2018-11-26 05:49] LABS: Band Neutrophils 8 % (0-10); Lymphocytes 11 % (20-55); Segmented Neutrophils 67 % (50-85); Total Cells Counted 100
[2018-11-26 05:50] LABS: Atypical Lymphocytes Few; Hypochromasia 1+; Microcytosis 1+; Platelet Estimate Decreased
[2018-11-26] MEDS: DEXAMETHASONE 4 MG TABLET PO SCH (09:13)
[2018-11-26] MEDS: INSULIN LISPRO 100 UNIT/ML SUBCUT SCH ×6 (09:13→21:12)
[2018-11-26] MEDS: amLODIPine 5 MG TABLET PO SCH (09:13)
[2018-11-26] MEDS: INSULIN GLARGINE 100 UNIT/ML SUBCUT SCH ×2 (09:14→21:10)
[2018-11-26] MEDS: FLUCONAZOLE INJ 100 MG in IV BAG 1 EACH IV SCH (12:15)
[2018-11-26] MEDS: VANCOMYCIN INJ 1,000 MG in SODIUM CHLORIDE 0.9% 250 ML IV SCH (18:09)
[2018-11-26] MEDS: SIMVASTATIN 20 MG TABLET PO SCH (21:10)
[2018-11-26] MEDS: ALUMINUM/MAGNES/SIMETH MAX STR 30 ML UDCUP PO PRN (21:10)
[2018-11-27] MEDS: SODIUM CHLORIDE 0.9% 1,000 ML IV SCH ×2 (03:41→15:11)
[2018-11-27 04:59] LABS: Hematocrit 30.7 VOL% (42.0-52.0); Hemoglobin 9.6 GM/DL (14.0-18.0); Immature Granulocytes Absolute 0.15 #; Lymphocytes # 0.5 10*3/uL (1.4-4.0); Lymphocytes % 9.7 % (21.2-54.2); Mean Corpuscular HGB Conc 31.3 GM/DL (32-36); Mean Corpuscular Hemoglobin 27 PG (27-34); Mean Corpuscular Volume 86.5 FL (87-102); Mean Platelet Volume 10.3 FL (9.6-12.0); Monocytes # 0.3 10*3/uL (0.11-0.8); Monocytes % 6.7 % (1.7-12.7); Neutrophils # 4.1 10*3/uL (1.4-7.4); Neutrophils % 80.6 % (38.7-73.9); Platelet Count 122 T/CUMM (130-400); Red Blood Count 3.55 MC/CUMM (3.8-5.5); Red Cell Distribution Width 15.9 % (9.3-17.3); White Blood Count 5.1 T/CUMM (4-12)
[2018-11-27 05:17] LABS: Albumin 2.8 G/DL (3.4-5.0); Bilirubin,Total 0.5 MG/DL (0.2-1.0); Calcium 7.9 MG/DL (8.5-10.1); Osmolality,Calculated 293.4 MOS/KG (273-304); Potassium 4.1 MMOL/L (3.5-5.1); Total Protein 6.6 G/DL (6.4-8.3)
[2018-11-27 05:46] LABS: Platelet Estimate Decreased; Polychromasia Few
[2018-11-27] MEDS: PIPERACILLIN/TAZOBACTAM 3,375 MG in SODIUM CHLORIDE 0.9% 100 ML IV SCH ×3 (06:42→21:27)
[2018-11-27] MEDS: INSULIN GLARGINE 100 UNIT/ML SUBCUT SCH ×4 (07:37→21:23)
[2018-11-27 09:07] LABS: Albumin (SPE) 4.3 G/DL (3.2-5.3); Albumin (SPE) Rel % 63.9 %; Alpha 1 (SPE) 0.2 G/DL (0.1-0.4); Alpha 1 (SPE) Rel % 3.2 %; Alpha 2 (SPE) 0.8 G/DL (0.4-1.0); Beta (SPE) 1.1 G/DL (0.5-1.1); Gamma (SPE) 0.3 G/DL (0.7-1.7)
[2018-11-27 09:31] LABS: Beta (SPE) Rel % 16.9 %
[2018-11-27] MEDS: DEXAMETHASONE 4 MG TABLET PO SCH (09:42)
[2018-11-27] MEDS: amLODIPine 5 MG TABLET PO SCH (09:42)
[2018-11-27] MEDS: MEGESTROL 400 MG/10 ML UDCUP PO SCH ×2 (09:43→21:21)
[2018-11-27] MEDS: INSULIN LISPRO 100 UNIT/ML SUBCUT SCH ×6 (09:43→21:24)
[2018-11-27] MEDS ORDERED: MORPHINE 4 MG/1 ML VIAL IV PRN (10:21)
[2018-11-27] MEDS ORDERED: ASPIRIN CHEW 81 MG TABLET PO ONE ×2 (10:21→10:24)
[2018-11-27] MEDS ORDERED: NITROGLYCERIN SL 0.4 MG TABLET SL ONE (10:24)
[2018-11-27] MEDS: NITROGLYCERIN SL 0.4 MG TABLET SL PRN ×2 (10:25→10:33)
[2018-11-27] MEDS: FLUCONAZOLE INJ 100 MG in IV BAG 1 EACH IV SCH (13:59)
[2018-11-27] MEDS: VANCOMYCIN INJ 1,000 MG in SODIUM CHLORIDE 0.9% 250 ML IV SCH (15:11)
[2018-11-27] MEDS: ALUMINUM/MAGNES/SIMETH MAX STR 30 ML UDCUP PO PRN (18:47)
[2018-11-27] MEDS: SIMVASTATIN 20 MG TABLET PO SCH (21:21)
[2018-11-28] MEDS: PIPERACILLIN/TAZOBACTAM 3,375 MG in SODIUM CHLORIDE 0.9% 100 ML IV SCH ×3 (04:47→21:25)
[2018-11-28] MEDS: hydrALAZINE 20 MG/1 ML VIAL IV PRN (05:22)
[2018-11-28 05:39] LABS: Albumin 2.9 G/DL (3.4-5.0); Bilirubin,Total 0.6 MG/DL (0.2-1.0); Calcium 8.4 MG/DL (8.5-10.1); Osmolality,Calculated 288.1 MOS/KG (273-304); Potassium 3.9 MMOL/L (3.5-5.1); Total Protein 6.7 G/DL (6.4-8.3)
[2018-11-28 05:48] LABS: Basophils % 0.2 % (0.0-0.8); Hemoglobin 10.3 GM/DL (14.0-18.0); Immature Granulocytes Absolute 0.36 #; Lymphocytes # 0.7 10*3/uL (1.4-4.0); Lymphocytes % 11.6 % (21.2-54.2); Mean Corpuscular HGB Conc 32.2 GM/DL (32-36); Mean Corpuscular Hemoglobin 28 PG (27-34); Mean Corpuscular Volume 86.7 FL (87-102); Mean Platelet Volume 10.1 FL (9.6-12.0); Monocytes # 0.7 10*3/uL (0.11-0.8); Monocytes % 12.1 % (1.7-12.7); Neutrophils # 4.2 10*3/uL (1.4-7.4); Neutrophils % 70.1 % (38.7-73.9); Platelet Count 142 T/CUMM (130-400); Red Blood Count 3.69 MC/CUMM (3.8-5.5); Red Cell Distribution Width 15.9 % (9.3-17.3)
[2018-11-28 07:59] LABS: Band Neutrophils 7 % (0-10); Lymphocytes 10 % (20-55); Segmented Neutrophils 71 % (50-85); Total Cells Counted 100
[2018-11-28 08:00] LABS: Acanthocytes 1+; Hypochromasia 2+; Platelet Estimate Decreased
[2018-11-28] MEDS: INSULIN LISPRO 100 UNIT/ML SUBCUT SCH ×6 (08:43→22:45)
[2018-11-28] MEDS: VANCOMYCIN INJ 1,000 MG in SODIUM CHLORIDE 0.9% 250 ML IV SCH (09:32)
[2018-11-28] MEDS: DEXAMETHASONE 4 MG TABLET PO SCH (09:33)
[2018-11-28] MEDS: MEGESTROL 400 MG/10 ML UDCUP PO SCH ×2 (09:33→21:23)
[2018-11-28] MEDS: amLODIPine 5 MG TABLET PO SCH (09:34)
[2018-11-28] MEDS: INSULIN GLARGINE 100 UNIT/ML SUBCUT SCH ×2 (09:35→21:24)
[2018-11-28] MEDS: FLUCONAZOLE INJ 100 MG in IV BAG 1 EACH IV SCH (12:42)
[2018-11-28] MEDS: SIMVASTATIN 20 MG TABLET PO SCH (21:23)
[2018-11-28] MEDS: SODIUM CHLORIDE 0.9% 1,000 ML IV SCH (22:46)
[2018-11-29] MEDS: SODIUM CHLORIDE 0.9% 1,000 ML IV SCH (03:50)
[2018-11-29] MEDS: PIPERACILLIN/TAZOBACTAM 3,375 MG in SODIUM CHLORIDE 0.9% 100 ML IV SCH ×3 (06:06→21:17)
[2018-11-29 07:21] LABS: Basophils % 0.5 % (0.0-0.8); Eosinophils % 0.2 % (0.00-10.9); Hemoglobin 10.6 GM/DL (14.0-18.0); Immature Granulocytes % 10.8 %; Immature Granulocytes Absolute 0.71 #; Lymphocytes % 15.5 % (21.2-54.2); Mean Corpuscular HGB Conc 32.1 GM/DL (32-36); Mean Corpuscular Hemoglobin 28 PG (27-34); Mean Corpuscular Volume 85.9 FL (87-102); Monocytes # 0.9 10*3/uL (0.11-0.8); Monocytes % 13.5 % (1.7-12.7); NRBC # 0.04 10*3/uL; Neutrophils # 3.9 10*3/uL (1.4-7.4); Neutrophils % 59.5 % (38.7-73.9); Platelet Count 153 T/CUMM (130-400); Red Blood Count 3.84 MC/CUMM (3.8-5.5); White Blood Count 6.6 T/CUMM (4-12)
[2018-11-29 07:42] LABS: Albumin 2.8 G/DL (3.4-5.0); Bilirubin,Total 0.4 MG/DL (0.2-1.0); Calcium 8.7 MG/DL (8.5-10.1); Osmolality,Calculated 289.1 MOS/KG (273-304); Total Protein 6.7 G/DL (6.4-8.3)
[2018-11-29 07:46] LABS: Band Neutrophils 4 % (0-10); Hypochromasia 1+; Lymphocytes 12 % (20-55); Nucleated Red Blood Cells 1 (0-5); Platelet Estimate Adequate; Segmented Neutrophils 69 % (50-85); Total Cells Counted 100
[2018-11-29] MEDS: VANCOMYCIN INJ 1,000 MG in SODIUM CHLORIDE 0.9% 250 ML IV SCH ×2 (09:00→09:16)
[2018-11-29] MEDS: MEGESTROL 400 MG/10 ML UDCUP PO SCH ×2 (09:16→21:14)
[2018-11-29] MEDS: INSULIN GLARGINE 100 UNIT/ML SUBCUT SCH ×2 (09:17→21:14)
[2018-11-29] MEDS: DEXAMETHASONE 4 MG TABLET PO SCH (09:17)
[2018-11-29] MEDS: amLODIPine 5 MG TABLET PO SCH (09:17)
[2018-11-29] MEDS: INSULIN LISPRO 100 UNIT/ML SUBCUT SCH ×6 (09:18→21:16)
[2018-11-29] MEDS: FLUCONAZOLE INJ 100 MG in IV BAG 1 EACH IV SCH (14:18)
[2018-11-29] MEDS: SIMVASTATIN 20 MG TABLET PO SCH (21:14)
[2018-11-30] MEDS: hydrALAZINE 20 MG/1 ML VIAL IV PRN ×2 (05:15→17:05)
[2018-11-30] MEDS: PIPERACILLIN/TAZOBACTAM 3,375 MG in SODIUM CHLORIDE 0.9% 100 ML IV SCH ×3 (05:18→22:06)
[2018-11-30 05:25] LABS: Basophils % 0.6 % (0.0-0.8); Hematocrit 33.2 VOL% (42.0-52.0); Hemoglobin 10.8 GM/DL (14.0-18.0); Immature Granulocytes % 15.5 %; Immature Granulocytes Absolute 0.96 #; Lymphocytes % 15.9 % (21.2-54.2); Mean Corpuscular HGB Conc 32.5 GM/DL (32-36); Mean Corpuscular Hemoglobin 28 PG (27-34); Mean Platelet Volume 10.1 FL (9.6-12.0); Monocytes # 0.9 10*3/uL (0.11-0.8); Monocytes % 13.8 % (1.7-12.7); NRBC # 0.03 10*3/uL; Neutrophils # 3.4 10*3/uL (1.4-7.4); Neutrophils % 54.2 % (38.7-73.9); Platelet Count 174 T/CUMM (130-400); Red Blood Count 3.86 MC/CUMM (3.8-5.5); Red Cell Distribution Width 16.1 % (9.3-17.3); White Blood Count 6.2 T/CUMM (4-12)
[2018-11-30 05:50] LABS: Bilirubin,Total 0.5 MG/DL (0.2-1.0); Calcium 8.8 MG/DL (8.5-10.1); Osmolality,Calculated 289.1 MOS/KG (273-304); Potassium 3.8 MMOL/L (3.5-5.1); Total Protein 6.9 G/DL (6.4-8.3)
[2018-11-30 05:54] LABS: Anisocytosis 1+; Band Neutrophils 9 % (0-10); Lymphocytes 13 % (20-55); Nucleated Red Blood Cells 1 (0-5); Platelet Estimate Normal; Poikilocytosis Slight; Polychromasia Slight; Segmented Neutrophils 68 % (50-85); Total Cells Counted 100
[2018-11-30] MEDS: INSULIN LISPRO 100 UNIT/ML SUBCUT SCH ×5 (09:26→20:39)
[2018-11-30] MEDS: INSULIN GLARGINE 100 UNIT/ML SUBCUT SCH ×2 (09:27→20:39)
[2018-11-30] MEDS: DEXAMETHASONE 4 MG TABLET PO SCH (09:28)
[2018-11-30] MEDS: amLODIPine 5 MG TABLET PO SCH (09:28)
[2018-11-30] MEDS: VANCOMYCIN INJ 1,000 MG in SODIUM CHLORIDE 0.9% 250 ML IV SCH (09:28)
[2018-11-30] MEDS: MEGESTROL 400 MG/10 ML UDCUP PO SCH ×2 (09:28→20:38)
[2018-11-30 11:55] LABS: Immuno Free Light Chain Kappa 1.26 MG/DL (0.33-1.94); Immuno Free Light Chain Lambda 14.63 MG/DL (0.57-2.63); Immuno Free Light Chain Ratio 0.09 MG/DL (0.26-1.65)
[2018-11-30] MEDS: FLUCONAZOLE INJ 100 MG in IV BAG 1 EACH IV SCH (13:08)
[2018-11-30] MEDS: ALUMINUM/MAGNES/SIMETH MAX STR 30 ML UDCUP PO PRN ×2 (13:15→18:13)
[2018-11-30] MEDS ORDERED: INSULIN LISPRO 100 UNIT/ML SUBCUT ONE (18:21)
[2018-11-30] MEDS: SIMVASTATIN 20 MG TABLET PO SCH (20:38)
[2018-12-01] MEDS: INSULIN LISPRO 100 UNIT/ML SUBCUT SCH ×2 (00:49→08:02)
[2018-12-01] MEDS ORDERED: DEXTROSE 50% 25 GM/50 ML SYRINGE IV PRN (01:05)
[2018-12-01] MEDS ORDERED: GLUCAGON 1 MG VIAL IM PRN (01:05)
[2018-12-01] MEDS ORDERED: INSULIN LISPRO 100 UNIT/ML SUBCUT SCH (07:30)
[2018-12-01] MEDS: INSULIN GLARGINE 100 UNIT/ML SUBCUT SCH (09:00)
[2018-12-01] MEDS: MEGESTROL 400 MG/10 ML UDCUP PO SCH (09:00)
[2018-12-01] MEDS: amLODIPine 5 MG TABLET PO SCH (09:00)
[2018-12-01] MEDS: VANCOMYCIN INJ 1,000 MG in SODIUM CHLORIDE 0.9% 250 ML IV SCH (09:00)
[2018-12-01] MEDS: DEXAMETHASONE 4 MG TABLET PO SCH (09:00)
[2018-12-01 11:48] VITALS: BP 166/86
== END 2018-12-01 11:50 | disposition swing bed (61) | DRG 682 ==
LOC: N.ED 09:21 → N.EDINP 11:54 → N.4E 14:33
PROVIDERS: ADMIT Family Medicine; ATTEND Family Medicine